=== PATIENT | female | born 1985 | race Caucasian/White ===

== ENCOUNTER 2022-03-31 14:55 | Inpatient (IN) | payer OTHER ==
[~2022-03-31] VITALS: Ht 162.6 cm; Wt 41.3 kg
[2022-03-31] MEDS ORDERED: CEFTRIAXONE 2 G PREMIX 50 ML IV ONE (15:45)
[2022-03-31] MEDS ORDERED: VANCOMYCIN 1G PREMIX 200 ML IV ONE (15:45)
[2022-03-31] MEDS ORDERED: ACYCLOVIR IV STA (15:45)
[2022-03-31] MEDS ORDERED: DEXT 5% IV STA (15:45)
[2022-03-31] MEDS ORDERED: WATER IV STA (15:45)
[2022-03-31] MEDS ORDERED: SODIUM CHLORIDE 0.9% 1000ML BAG (SEPSIS BOLUS) IV ONE (15:45)
[2022-03-31] MEDS ORDERED: DEXAMETHASONE 10 MG/ML VIAL IV ONE (15:45)
[2022-03-31] MEDS: MORPHINE SULFATE 4 MG/ML CPJ (NOT FOR IM USE) IV STA ×2 (15:56→16:42)
[2022-03-31] MEDS: ONDANSETRON HCL 4MG/2ML INJ IV STA ×2 (15:56→16:41)
[2022-03-31] MEDS ORDERED: LIDOCAINE HCL/PF 1% 10 MG/ML 5ML VIAL INFIL ONE (16:00)
[2022-03-31] MEDS ORDERED: ACETAMINOPHEN 325MG TABLET PO ONE (16:00)
[2022-03-31] MEDS ORDERED: CEFTRIAXONE 2 G in DEXTROSE 5% WATER 50 ML IV NR (16:00)
[2022-03-31 16:08] LABS: CHLORIDE 104 mEq/L (98-107)
[2022-03-31 16:10] LABS: INR 1.1; PROTHROMBIN TIME 11.6 sec (9.6-11.0)
[2022-03-31 16:18] LABS: HEMOGLOBIN. 12.8 g/dL (12.0-16.0); MEAN CORPUSCULAR HEMOGLOBIN 31.7 pg (28.0-32.0); MEAN CORPUSCULAR VOLUME 89.1 fL (81.0-99.0); MEAN PLATELET VOLUME 9.2 fl (7.4-10.4); PLATELET 126 x1000/uL (130-400); RED BLOOD CELL COUNT 4.04 mill/uL (4.2-5.4); RED CELL DISTRIBUTION WIDTH 13.2 % (11.6-14.6)
[2022-03-31 16:37] LABS: HCG SCREEN NEGATIVE
[2022-03-31 16:53] LABS: PLATELET ESTIMATE SLIGHTLY DECREASED
[2022-03-31] MEDS ORDERED: LIDOCAINE HCL 1% 20ML VIAL (Pyxis) INJ INFIL ONE (17:45)
[2022-03-31 18:10] LABS: CLARITY URINE CLEAR (CLEAR); COLOR URINE YELLOW (YELLOW); KETONES URINE NEGATIVE (NEGATIVE); LEUKOCYTE ESTERASE URINE NEGATIVE (NEGATIVE); NITRITE URINE NEGATIVE (NEGATIVE); OCCULT BLOOD URINE 1+ (NEGATIVE); PH URINE 6.5 (4.5-8.0); PROTEIN URINE NEGATIVE (NEGATIVE); SPECIFIC GRAVITY URINE 1.009 (1.005-1.030)
[2022-03-31] MEDS ORDERED: SODIUM CHLORIDE 0.9% 1,000 ML IV ONE (18:30)
[2022-03-31 19:17] LABS: GLUCOSE CSF 68 mg/dL (41-75)
[2022-03-31] MEDS ORDERED: SODIUM CHLORIDE 0.9% 1,000 ML IV SCH (23:45)
[2022-04-01 08:50] VITALS: BP 98/57
[2022-04-01] MEDS ORDERED: ONDANSETRON HCL 4MG/2ML INJ IV PRN (10:00)
[2022-04-01 10:51] VITALS: BP 98/57
[2022-04-01] MEDS ORDERED: CEFTRIAXONE 2 G in DEXTROSE 5% WATER 50 ML IV SCH (11:30)
[2022-04-01 12:00] VITALS: BP 87/50
[2022-04-01] MEDS ORDERED: VANCOMYCIN 750MG PREMIX 150 ML IV SCH (12:00)
[2022-04-01 16:00] VITALS: BP 82/47
[2022-04-01] MEDS ORDERED: SODIUM CHLORIDE 0.9% 500 ML IV NR (16:30)
[2022-04-01] MEDS ORDERED: CEFTRIAXONE 2 G PREMIX 50 ML IV SCH (17:00)
[2022-04-01] MEDS: CEFEPIME 2,000 MG in DEXT 5% WATER 100 ML IV SCH (17:37)
[2022-04-01] MEDS: ACETAMINOPHEN 325MG TABLET PO PRN ×2 (17:49→23:49)
[2022-04-01 20:00] VITALS: BP 103/64
[2022-04-01] MEDS: VANCOMYCIN 750MG PREMIX 150 ML IV SCH (21:57)
[2022-04-02] VITALS (7 sets, daily range): BP systolic 88–103; BP diastolic 34–56
[2022-04-02] MEDS: CEFEPIME 2,000 MG in DEXT 5% WATER 100 ML IV SCH ×2 (05:02→17:08)
[2022-04-02] MEDS: KETOROLAC 30MG/ML VIAL IV PRN ×3 (06:01→22:53)
[2022-04-02] MEDS: VANCOMYCIN 750MG PREMIX 150 ML IV SCH (06:05)
[2022-04-02 06:53] LABS: BASOPHILS % 0.5 % (0.0-2.0); EOSINOPHILS % 2.2 % (0.0-5.0); HEMOGLOBIN. 10.9 g/dL (12.0-16.0); LYMPHOCYTES % 26.1 % (20.0-50.0); MEAN CORPUSCULAR HEMOGLOBIN 30.9 pg (28.0-32.0); MEAN CORPUSCULAR VOLUME 90.9 fL (81.0-99.0); MEAN PLATELET VOLUME 9.8 fl (7.4-10.4); MONOCYTES % 8.5 % (2.0-8.0); NEUTROPHILS % 62.7 % (40.0-76.0); PLATELET 141 x1000/uL (130-400); RED BLOOD CELL COUNT 3.52 mill/uL (4.2-5.4); RED CELL DISTRIBUTION WIDTH 13.3 % (11.6-14.6)
[2022-04-02 07:17] LABS: CHLORIDE 112 mEq/L (98-107)
[2022-04-02] MEDS ORDERED: NALOXONE HCL 0.4MG/ML VIAL IV PRN (10:30)
[2022-04-02] MEDS: TRAMADOL 50MG TABLET PO PRN ×2 (10:39→18:25)
[2022-04-02] MEDS ORDERED: GADOTERATE MEGLUMINE 5 MMOL/10 ML VIAL IV ONE (13:18)
[2022-04-02] MEDS: VANCOMYCIN 1G PREMIX 200 ML IV SCH ×2 (14:00→22:59)
[2022-04-02] MEDS ORDERED: SODIUM CHLORIDE 0.9% 1,000 ML IV SCH ×2 (21:00→21:30)
[2022-04-02] MEDS ORDERED: SODIUM CHLORIDE 0.9% 1,000 ML IV ONE (21:07)
[2022-04-02] MEDS: ACETAMINOPHEN 325MG TABLET PO PRN (21:25)
[2022-04-03] VITALS: BP 99/60
[2022-04-03] MEDS ORDERED: SODIUM CHLORIDE 0.9% 1,000 ML IV ONE (00:15)
[2022-04-03] MEDS ORDERED: SODIUM CHLORIDE 0.9% 100 ML IV ONE (00:15)
[2022-04-03] MEDS: SODIUM CHLORIDE 0.9% 1,000 ML IV SCH ×2 (01:03→13:23)
[2022-04-03 04:00] VITALS: BP 95/55
[2022-04-03] MEDS: TRAMADOL 50MG TABLET PO PRN (04:58)
[2022-04-03] MEDS: CEFEPIME 2,000 MG in DEXT 5% WATER 100 ML IV SCH ×2 (05:05→16:56)
[2022-04-03] MEDS: ACETAMINOPHEN 325MG TABLET PO PRN (07:16)
[2022-04-03] MEDS: VANCOMYCIN 1G PREMIX 200 ML IV SCH ×3 (07:33→20:46)
[2022-04-03 08:00] VITALS: BP 109/67
[2022-04-03] MEDS: KETOROLAC 30MG/ML VIAL IV PRN ×3 (08:13→23:33)
[2022-04-03 10:29] LABS: CHLORIDE 109 mEq/L (98-107)
[2022-04-03] MEDS ORDERED: POTASSIUM CHLORIDE 20MEQ TABLET SR PO NR (11:15)
[2022-04-03] MEDS ORDERED: NALOXONE HCL 0.4MG/ML VIAL IV PRN (11:30)
[2022-04-03 12:00] VITALS: BP 103/65
[2022-04-03] MEDS: HYDROCODONE/ACETAMINOPHEN 5/325MG TABLET PO PRN (12:14)
[2022-04-03 16:00] VITALS: BP 93/47
[2022-04-03 20:00] VITALS: BP 108/65
[2022-04-04] VITALS: BP 108/65
[2022-04-04 04:00] VITALS: BP 102/53
[2022-04-04] MEDS: SODIUM CHLORIDE 0.9% 1,000 ML IV SCH (05:55)
[2022-04-04] MEDS: CEFEPIME 2,000 MG in DEXT 5% WATER 100 ML IV SCH ×2 (05:55→18:36)
[2022-04-04] MEDS: KETOROLAC 30MG/ML VIAL IV PRN (06:10)
[2022-04-04] MEDS: VANCOMYCIN 1G PREMIX 200 ML IV SCH ×3 (06:50→21:46)
[2022-04-04 08:00] VITALS: BP 100/62
[2022-04-04] MEDS: ACETAMINOPHEN 325MG TABLET PO PRN ×2 (09:26→15:14)
[2022-04-04] MEDS: HYDROCODONE/ACETAMINOPHEN 5/325MG TABLET PO PRN ×3 (10:51→21:46)
[2022-04-04 12:00] VITALS: BP 98/55
[2022-04-04 15:52] VITALS: BP 118/65
[2022-04-04 20:00] VITALS: BP 96/51
[2022-04-04] MEDS ORDERED: POTASSIUM CHLORIDE 20MEQ TABLET SR PO NR (20:15)
[2022-04-05] VITALS: BP 104/55
[2022-04-05] MEDS: HYDROCODONE/ACETAMINOPHEN 5/325MG TABLET PO PRN ×5 (02:05→21:54)
[2022-04-05 04:00] VITALS: BP 98/51
[2022-04-05] MEDS: CEFEPIME 2,000 MG in DEXT 5% WATER 100 ML IV SCH ×2 (05:43→18:47)
[2022-04-05] MEDS: SODIUM CHLORIDE 0.9% 1,000 ML IV SCH ×2 (05:43→18:48)
[2022-04-05] MEDS: VANCOMYCIN 1G PREMIX 200 ML IV SCH (05:43)
[2022-04-05 08:00] VITALS: BP 94/51
[2022-04-05] MEDS: FLUTICASONE PROPIONATE 50MCG/SPRAY BOTTLE BOTHNSTRLS SCH ×2 (09:38→21:54)
[2022-04-05 12:00] VITALS: BP 109/58
[2022-04-05 16:00] VITALS: BP 96/49
[2022-04-06] MEDS: HYDROCODONE/ACETAMINOPHEN 5/325MG TABLET PO PRN ×3 (02:14→17:28)
[2022-04-06] MEDS: CEFEPIME 2,000 MG in DEXT 5% WATER 100 ML IV SCH ×2 (06:07→17:41)
[2022-04-06] MEDS: TRAMADOL 50MG TABLET PO PRN ×3 (06:08→20:32)
[2022-04-06] MEDS: SODIUM CHLORIDE 0.9% 1,000 ML IV SCH (08:15)
[2022-04-06] MEDS: FLUTICASONE PROPIONATE 50MCG/SPRAY BOTTLE BOTHNSTRLS SCH ×2 (08:55→20:33)
[2022-04-06 20:00] VITALS: BP 114/58
[2022-04-06 21:26] LABS: BASOPHILS % 0.3 % (0.0-2.0); EOSINOPHILS % 5.8 % (0.0-5.0); HEMATOCRIT. 35.1 % (36.0-48.0); HEMOGLOBIN. 11.7 g/dL (12.0-16.0); MEAN CORPUSCULAR HEMOGLOBIN 30.4 pg (28.0-32.0); MEAN CORPUSCULAR VOLUME 91.2 fL (81.0-99.0); MONOCYTES % 9.8 % (2.0-8.0); NEUTROPHILS % 61.1 % (40.0-76.0); PLATELET 146 x1000/uL (130-400); RED BLOOD CELL COUNT 3.85 mill/uL (4.2-5.4); RED CELL DISTRIBUTION WIDTH 13.2 % (11.6-14.6)
[2022-04-06 21:42] LABS: CHLORIDE 103 mEq/L (98-107)
[2022-04-07] VITALS: BP 118/60
[2022-04-07] MEDS: HYDROCODONE/ACETAMINOPHEN 5/325MG TABLET PO PRN ×4 (01:27→15:31)
[2022-04-07] MEDS: SODIUM CHLORIDE 0.9% 1,000 ML IV SCH ×2 (01:30→10:55)
[2022-04-07 04:00] VITALS: BP 96/51
[2022-04-07] MEDS: TRAMADOL 50MG TABLET PO PRN (05:48)
[2022-04-07] MEDS: CEFEPIME 2,000 MG in DEXT 5% WATER 100 ML IV SCH ×2 (06:00→20:16)
[2022-04-07 08:00] VITALS: BP 99/44
[2022-04-07] MEDS: ACETAMINOPHEN 325MG TABLET PO PRN (08:50)
[2022-04-07] MEDS: FLUTICASONE PROPIONATE 50MCG/SPRAY BOTTLE BOTHNSTRLS SCH ×2 (08:50→22:55)
[2022-04-07 12:00] VITALS: BP 94/49
[2022-04-07 16:00] VITALS: BP 98/50
[2022-04-08] MEDS: HYDROCODONE/ACETAMINOPHEN 5/325MG TABLET PO PRN ×5 (01:30→23:22)
[2022-04-08] MEDS: ACETAMINOPHEN 325MG TABLET PO PRN ×3 (04:43→16:42)
[2022-04-08] MEDS: CEFEPIME 2,000 MG in DEXT 5% WATER 100 ML IV SCH ×2 (06:28→17:12)
[2022-04-08 08:00] VITALS: BP 101/60
[2022-04-08 12:00] VITALS: BP 124/82
[2022-04-08] MEDS ORDERED: NALOXONE HCL 0.4MG/ML VIAL IV PRN (13:00)
[2022-04-08 16:24] VITALS: BP 95/50
[2022-04-08 20:00] VITALS: BP 93/45
[2022-04-09] VITALS: BP 100/49
[2022-04-09] MEDS: ACETAMINOPHEN 325MG TABLET PO PRN ×2 (04:07→13:33)
[2022-04-09] MEDS: CEFEPIME 2,000 MG in DEXT 5% WATER 100 ML IV SCH ×2 (05:37→17:05)
[2022-04-09] MEDS: HYDROCODONE/ACETAMINOPHEN 5/325MG TABLET PO PRN ×2 (06:12→10:30)
[2022-04-09 08:00] VITALS: BP 102/53
[2022-04-09 12:00] VITALS: BP 104/62
[2022-04-09 16:00] VITALS: BP 110/62
[2022-04-09] MEDS: KETOROLAC 30MG/ML VIAL IV PRN (17:21)
[2022-04-09 20:00] VITALS: BP 98/51
[2022-04-10] VITALS: BP 104/51
[2022-04-10] MEDS: KETOROLAC 30MG/ML VIAL IV PRN ×3 (02:26→20:51)
[2022-04-10] MEDS: CEFEPIME 2,000 MG in DEXT 5% WATER 100 ML IV SCH ×2 (05:46→17:15)
[2022-04-10 08:02] VITALS: BP 94/50
[2022-04-10 12:00] VITALS: BP 98/50
[2022-04-10 16:00] VITALS: BP 92/50
[2022-04-10 20:00] VITALS: BP 110/53
[2022-04-11] VITALS: BP 91/49
[2022-04-11 04:00] VITALS: BP 102/41
[2022-04-11] MEDS: CEFEPIME 2,000 MG in DEXT 5% WATER 100 ML IV SCH ×2 (05:16→17:12)
[2022-04-11] MEDS: KETOROLAC 30MG/ML VIAL IV PRN ×2 (05:27→16:35)
[2022-04-11 08:00] VITALS: BP 87/46
[2022-04-11 12:00] VITALS: BP 96/48
[2022-04-11 16:00] VITALS: BP 92/46
[2022-04-11 20:00] VITALS: BP 145/43
[2022-04-12] VITALS: BP 104/52
[2022-04-12 04:00] VITALS: BP 98/69
[2022-04-12] MEDS: CEFEPIME 2,000 MG in DEXT 5% WATER 100 ML IV SCH ×2 (05:37→17:22)
[2022-04-12] MEDS: HYDROCODONE/ACETAMINOPHEN 5/325MG TABLET PO PRN ×4 (05:41→23:53)
[2022-04-12 08:00] VITALS: BP 103/50
[2022-04-12 12:00] VITALS: BP 102/51
[2022-04-12 16:00] VITALS: BP 91/50
[2022-04-12] MEDS: ACETAMINOPHEN 325MG TABLET PO PRN (19:30)
[2022-04-12 20:00] VITALS: BP 92/52
[2022-04-13] VITALS: BP 93/52
[2022-04-13 04:00] VITALS: BP 90/52
[2022-04-13] MEDS: HYDROCODONE/ACETAMINOPHEN 5/325MG TABLET PO PRN (04:10)
[2022-04-13] MEDS: CEFEPIME 2,000 MG in DEXT 5% WATER 100 ML IV SCH ×2 (06:17→20:51)
[2022-04-13 08:00] VITALS: BP 86/45
[2022-04-13] MEDS: ACETAMINOPHEN 325MG TABLET PO PRN ×2 (09:52→16:42)
[2022-04-13] MEDS ORDERED: KETOROLAC 30MG/ML VIAL IV PRN (11:30)
[2022-04-13 12:00] VITALS: BP 88/50
[2022-04-13 16:00] VITALS: BP 99/40
[2022-04-13 20:00] VITALS: BP 97/55
[2022-04-14] MEDS: CEFEPIME 2,000 MG in DEXT 5% WATER 100 ML IV SCH ×2 (06:52→16:13)
[2022-04-14] MEDS: ACETAMINOPHEN 325MG TABLET PO PRN (06:52)
[2022-04-14 08:00] VITALS: BP 96/48
[2022-04-14 12:00] VITALS: BP 91/46
[2022-04-14] MEDS ORDERED: ACETAMINOPHEN 325MG TABLET PO PRN (14:30)
[2022-04-14 16:00] VITALS: BP 95/47
[2022-04-14 17:19] VITALS: BP 91/46
[2022-04-14 17:26] VITALS: BP 91/46
== END 2022-04-14 08:15 | disposition home or self-care (01) | DRG 872 ==
LOC: ER 14:55 → MICUSO 18:04 → 6WST 04-01 07:24 → 6EST 04-05 13:50
PROVIDERS: ADMIT Internal Medicine; ATTEND Internal Medicine
PROC: 009U3ZX Drainage of Spinal Canal, Percutaneous Approach, Diagnostic (ICD-10-PCS; 2022-03-31)
PROC: 4A10X4Z Monitoring of Central Nervous Electrical Activity, External Approach (ICD-10-PCS; principal; 2022-04-02)
DX: A41.53 Sepsis due to Serratia (principal); E44.1 Mild protein-calorie malnutrition; Z68.1 Body mass index [BMI] 19.9 or less, adult; D69.6 Thrombocytopenia, unspecified; E80.6 Other disorders of bilirubin metabolism; Z20.822 Contact with and (suspected) exposure to COVID-19; R65.20 Severe sepsis without septic shock
CPT/HCPCS: 36415; 70553; 71045; 80048; 80053; 80202; 81003; 82945; 83605; 84145; 84157; 84484; 84703; 85025; 86850; 86900; 87070; 87077; 87186; 87426; 93005; 95816; 99291; A9577; C9803; J0133; J0692; J0696; J1100; J1885; J2270; J2405; J3370; J3490; J7030; J7060